=== PATIENT | female | born 1940 | race Caucasian/White ===

== ENCOUNTER 2021-05-28 12:22 | Outpatient (CLI) | payer MEDICARE | END 2021-05-28 12:23 | disposition home or self-care (01) | LOC: ULT 12:22 | PROVIDERS: ATTEND Family Medicine | DX: I73.9 Peripheral vascular disease, unspecified (principal); I70.201 Unspecified atherosclerosis of native arteries of extremities, right leg; I77.89 Other specified disorders of arteries and arterioles | CPT/HCPCS: 93923 ==

== ENCOUNTER 2021-07-12 12:14 | Outpatient (CLI) | payer MEDICARE | END 2021-07-12 12:15 | disposition home or self-care (01) | LOC: EEG 12:14 | PROVIDERS: ATTEND Family Medicine | DX: G40.219 Localization-related (focal) (partial) symptomatic epilepsy and epileptic syndromes with complex partial seizures, intractable, without status epilepticus (principal) | CPT/HCPCS: 95816 ==

== ENCOUNTER 2021-08-16 11:20 | Outpatient (CLI) | payer MEDICARE ==
[~2021-08-16 11:20] MED LIST: Iopamidol 370 76% 100 ML VIAL ONE
== END 2021-08-16 11:21 | disposition home or self-care (01) ==
LOC: CT 11:20
PROVIDERS: ATTEND Internal Medicine Cardiovascular Disease
DX: I82.220 Acute embolism and thrombosis of inferior vena cava (principal); Z90.49 Acquired absence of other specified parts of digestive tract
CPT/HCPCS: 74160

== ENCOUNTER 2021-09-14 14:35 | Outpatient (CLI) | payer MEDICARE | END 2021-09-14 14:36 | disposition home or self-care (01) | LOC: BICMAMMO 14:35 | PROVIDERS: ATTEND Internal Medicine Hematology & Oncology | DX: M81.8 Other osteoporosis without current pathological fracture (principal); C50.412 Malignant neoplasm of upper-outer quadrant of left female breast; M85.852 Other specified disorders of bone density and structure, left thigh; M85.851 Other specified disorders of bone density and structure, right thigh | CPT/HCPCS: 77080; G0279 ==

== ENCOUNTER 2022-06-06 12:38 | Outpatient (CLI) | payer MEDICARE | END 2022-06-06 12:39 | disposition home or self-care (01) | LOC: ULT 12:38 | PROVIDERS: ATTEND Family Medicine | DX: M79.89 Other specified soft tissue disorders (principal); R07.9 Chest pain, unspecified; M25.531 Pain in right wrist; M18.9 Osteoarthritis of first carpometacarpal joint, unspecified | CPT/HCPCS: 71046; 93970 ==

== ENCOUNTER 2022-07-25 08:50 | Outpatient (CLI) | payer MEDICARE | END 2022-07-25 08:51 | disposition home or self-care (01) | LOC: CT 08:50 | PROVIDERS: ATTEND Physician Assistant | DX: R93.1 Abnormal findings on diagnostic imaging of heart and coronary circulation (principal); Q79.1 Other congenital malformations of diaphragm; J98.4 Other disorders of lung | CPT/HCPCS: 71275 ==

== ENCOUNTER 2022-09-01 14:24 | Emergency (ER) | payer MEDICARE ==
[2022-09-01 15:34] LABS: Hemoglobin 11.5 g/dL (12.0-16.0); Mean Corpuscular HGB CONC 33.3 g/dL (32.0-36.0); Mean Corpuscular Hemoglobin 36.3 pg (27.0-31.0); RBC Distribution Width 13.8 % (11.5-14.5); Red Blood Cell (RBC) Count 3.17 mill/uL (4.20-5.40); White Blood Cell (WBC) Count 2.7 10x3/uL (4.8-10.8)
[2022-09-01 15:52] LABS: #Basophils 0.1 thou/uL (0.0-0.2); #Lymphocytes 0.9 thou/uL (1.20-3.40); #Monocytes 0.2 thou/uL (0.11-0.59); #Neutrophils 1.5 thou/uL (1.40-6.50); %Basophils 2.7 % (0.0-1.0); %Eosinophils 1.4 % (0.0-10.0); %Lymphocytes 32.8 % (21.0-51.0); %Monocytes 8.9 % (0.0-10.0); %Neutrophils 54.2 % (42.0-75.0); MDiff Complete? YES; Macrocytosis SLIGHT = 6-15 cells (100X) (0-5/hpf); Mean Platelet Volume 8.1 fL (7.4-10.4); Platelet Count 108 10x3/uL (130-400); Platelet Morphology Comment Appears Decreased; Schistocytes SLIGHT = 2-5 cells (100X) (0-1/hpf)
[2022-09-01] MEDS ORDERED: Aspirin Chewable 81 MG TAB ONE (15:52)
[2022-09-01 15:53] LABS: ALT (SGPT) 26 U/L (8-55); AST (SGOT) 33 U/L (5-34); Albumin 3.1 g/dL (3.4-4.8); Alkaline Phosphatase 131 U/L (40-110); Anion Gap 10 mmol/L (10-20); BUN (Urea Nitrogen) 18 mg/dL (9.8-20.1); Bilirubin, Total 0.4 mg/dL (0.2-1.2); Calc. Creatinine Clearance 0 mL/min (70-130); Calcium 9.1 mg/dL (7.8-10.44); Carbon Dioxide 31 mmol/L (23-31); Chloride 105 mmol/L (98-107); Estimated GFR 69; Globulin 2.5 g/dL (2.4-3.5); Glucose 95 mg/dL (83-110); Lipase 83 U/L (8-78); Potassium 3.8 mmol/L (3.5-5.1); Protein, Total 5.6 g/dL (5.8-8.1); Sodium 142 mmol/L (136-145)
[2022-09-01 16:05] LABS: Bilirubin Negative (Negative); Blood, Urine Negative (Negative); Clarity Clear (Clear); Glucose, Urine (Dipstick) Normal (Negative); Ketone, Urine Negative (Negative); Leukocyte Negative Leu/uL (Negative); Nitrite Negative (Negative); Protein, Urine (Dipstick) Negative (Neg-Trace); Specific Gravity, Urine 1.011 (1.002-1.036); Urobilinogen Normal mg/dL (Less than 2)
== END 2022-09-01 17:37 | disposition home or self-care (01) ==
LOC: ERS 14:24
DX: R07.9 Chest pain, unspecified (principal); D72.819 Decreased white blood cell count, unspecified; I10 Essential (primary) hypertension
CPT/HCPCS: 36415; 71045; 80053; 81003; 83690; 83880; 84484; 85025; 85379; 93005

== ENCOUNTER 2022-12-26 12:15 | Outpatient (CLI) | payer MEDICARE | END 2022-12-26 12:16 | disposition home or self-care (01) | LOC: RAD 12:15 | PROVIDERS: ATTEND Internal Medicine Hematology & Oncology | DX: R07.9 Chest pain, unspecified (principal); C50.412 Malignant neoplasm of upper-outer quadrant of left female breast; M81.8 Other osteoporosis without current pathological fracture; T38.6X5A Adverse effect of antigonadotrophins, antiestrogens, antiandrogens, not elsewhere classified, initial encounter | CPT/HCPCS: 71046 ==

== ENCOUNTER 2023-02-13 08:58 | Outpatient (CLI) | payer MEDICARE | END 2023-02-13 08:59 | disposition home or self-care (01) | LOC: BICMAMMO 08:58 | PROVIDERS: ATTEND Internal Medicine Hematology & Oncology | DX: Z08 Encounter for follow-up examination after completed treatment for malignant neoplasm (principal); Z85.3 Personal history of malignant neoplasm of breast | CPT/HCPCS: 77066; G0279 ==

== ENCOUNTER 2023-02-17 15:39 | Emergency (ER) | payer MEDICARE ==
[2023-02-17] MEDS ORDERED: Clindamycin 150 MG CAP ONE (17:17)
[2023-02-17 18:11] LABS: #Basophils 0.1 thou/uL (0.0-0.2); #Monocytes 0.4 thou/uL (0.11-0.59); #Neutrophils 1.3 thou/uL (1.40-6.50); %Basophils 2.5 % (0.0-1.0); %Eosinophils 1.6 % (0.0-10.0); %Monocytes 14.8 % (0.0-10.0); %Neutrophils 53.7 % (42.0-75.0); Hemoglobin 9.9 g/dL (12.0-16.0); Mean Corpuscular Hemoglobin 34.4 pg (27.0-31.0); Mean Corpuscular Volume 104.2 fl (78.0-98.0); Mean Platelet Volume 9.7 fL (7.4-10.4); Platelet Count 123 10x3/uL (130-400); RBC Distribution Width 15.9 % (11.5-14.5); Red Blood Cell (RBC) Count 2.88 mill/uL (4.20-5.40); White Blood Cell (WBC) Count 2.4 10x3/uL (4.8-10.8)
[2023-02-17 18:34] LABS: ALT (SGPT) 31 U/L (8-55); AST (SGOT) 42 U/L (5-34); Albumin 3.2 g/dL (3.4-4.8); Alkaline Phosphatase 149 U/L (40-110); Anion Gap 12 mmol/L (10-20); BUN (Urea Nitrogen) 12 mg/dL (9.8-20.1); Bilirubin, Total 0.5 mg/dL (0.2-1.2); Calc. Creatinine Clearance 0 mL/min (70-130); Calcium 9.5 mg/dL (7.8-10.44); Carbon Dioxide 27 mmol/L (23-31); Chloride 106 mmol/L (98-107); Estimated GFR 75; Globulin 2.8 g/dL (2.4-3.5); Glucose 97 mg/dL (83-110); Potassium 4.4 mmol/L (3.5-5.1); Sodium 141 mmol/L (136-145)
[2023-02-17 18:40] LABS: CRP (Inflammatory) Less than 0.50 mg/dL (= or < 0.5); Magnesium 1.9 mg/dL (1.6-2.6)
[2023-02-17] MEDS ORDERED: Bacitracin 1 PK ONE (20:09)
== END 2023-02-17 20:26 | disposition home or self-care (01) ==
LOC: ERS 15:39
DX: L03.116 Cellulitis of left lower limb (principal)
CPT/HCPCS: 36415; 80053; 83605; 83735; 83880; 85025; 86140; 87040; 93970

== ENCOUNTER 2023-04-10 14:56 | Outpatient (CLI) | payer MEDICARE | END 2023-04-10 14:57 | disposition home or self-care (01) | LOC: ULT 14:56 | PROVIDERS: ATTEND Family Medicine | DX: M79.604 Pain in right leg (principal); M79.605 Pain in left leg; R60.0 Localized edema | CPT/HCPCS: 93970 ==

== ENCOUNTER 2023-12-15 10:38 | Outpatient (CLI) | payer MEDICARE | END 2023-12-15 10:39 | disposition home or self-care (01) | LOC: BICMAMMO 10:38 | PROVIDERS: ATTEND Internal Medicine Hematology & Oncology | DX: M81.8 Other osteoporosis without current pathological fracture (principal); C50.412 Malignant neoplasm of upper-outer quadrant of left female breast; T38.6X5A Adverse effect of antigonadotrophins, antiestrogens, antiandrogens, not elsewhere classified, initial encounter; D50.8 Other iron deficiency anemias; M85.851 Other specified disorders of bone density and structure, right thigh; M85.852 Other specified disorders of bone density and structure, left thigh | CPT/HCPCS: 77080 ==

== ENCOUNTER 2024-06-21 12:56 | Emergency (ER) | payer MEDICARE | END 2024-06-21 16:10 | disposition home or self-care (01) | LOC: ERS 12:56 | DX: S82.64XA Nondisplaced fracture of lateral malleolus of right fibula, initial encounter for closed fracture (principal); W10.9XXA Fall (on) (from) unspecified stairs and steps, initial encounter; X50.1XXA Overexertion from prolonged static or awkward postures, initial encounter; Y93.89 Activity, other specified | CPT/HCPCS: 27808 ==

== ENCOUNTER 2025-04-12 09:05 | Outpatient (CLI) | payer MEDICARE | END 2025-04-12 09:06 | disposition home or self-care (01) | LOC: BICMAMMO 09:05 | PROVIDERS: ATTEND Internal Medicine Hematology & Oncology | DX: C50.412 Malignant neoplasm of upper-outer quadrant of left female breast (principal); M81.8 Other osteoporosis without current pathological fracture; T38.6X5A Adverse effect of antigonadotrophins, antiestrogens, antiandrogens, not elsewhere classified, initial encounter; D50.8 Other iron deficiency anemias; R22.2 Localized swelling, mass and lump, trunk; M85.851 Other specified disorders of bone density and structure, right thigh; M85.852 Other specified disorders of bone density and structure, left thigh | CPT/HCPCS: 77080 ==